=== PATIENT | male | born 1995 | race Caucasian/White ===

== ENCOUNTER 2018-10-30 00:57 | Emergency (ER) | payer OTHER ==
--- NOTE | 2018-10-30 01:04 | ED ---
General Adult HPI - General Stated complaint: Chest pain Time Seen by Provider: 10/30/18 01:04 - History of Present Illness Initial comments: Rigo is a 22-year-old male who presents to the emergency department today for evaluation of palpitations. Patient reports that earlier today he smoked marijuana dab and then began to have palpitations which prompted him to come to the ER. Had no lightheadedness or diaphoresis with this. He had no exertional chest pain. He denies any other drug use. Symptoms resolved shortly after arrival. Patient does report that 3-4 months ago he used cocaine and developed some chest pain he was evaluated an outside hospital was admitted overnight and evaluated by cardiology, he did not have a cardiac catheterization but was cleared by cardiology at that time.. - Related Data Allergies Allergy/AdvReac Type Severity Reaction Status Date / Time No Known Allergies Allergy Verified 10/30/18 01:59 Review of Systems ROS Statement: Those systems with pertinent positive or pertinent negative responses have been documented in the HPI. ROS Other: All systems not noted in ROS Statement are negative. General Exam - General Exam Comments Initial Comments: Physical Exam GENERAL: Patient is well-developed and well-nourished. Patient is nontoxic and well- hydrated and is in no distress. HENT: Normocephalic, Atraumatic. EYES: PERRL, EOMI PULMONARY: Unlabored respirations. No audible rales rhonchi or wheezing was noted. CARDIOVASCULAR: There is a regular rate and rhythm without any murmurs gallops or rubs. ABDOMEN: Soft and nontender with normal bowel sounds. SKIN: Skin is clear with no lesions or rashes and otherwise unremarkable. : Deferred NEUROLOGIC: Patient is alert and oriented x3. Moving all extremities spontaneously MUSCULOSKELETAL: Normal extremities with adequate strength and full range of motion. No lower extremity swelling or edema. No calf tenderness. PSYCHIATRIC: Normal psychiatric evaluation. Course Vital Signs 10/30/18 00:59 Temperature 98.8 F Pulse Rate 120 H Respiratory 20 Rate Blood Pressure 99/79 O2 Sat by Pulse 97 Oximetry EKG Findings - EKG Comments: EKG Findings:: EKG was obtained at 1:02 AM, rate is 122, rhythm is sinus tachycardia there is normal axis there are normal intervals, MA 160, QRS 98, QTC 441 and there is no acute ST elevations or depressions is no evidence of acute ischemia or infarction. Repeat EKG was obtained at 4:31 AM, patient's heart rate and improved, rate is 67 rhythm is sinus there is normal axis are normal intervals, MA 164, QRS 98, QTC [address] elevations or depressions there is no evidence of acute ischemia or infarction. Medical Decision Making - Medical Decision Making Patient was seen and evaluated, patient with no cardiac history presenting with palpitations after smoking marijuana Patient not experiencing chest pain on evaluation, patient did undergo a thorough cardiac evaluation 3-4 months ago when he had chest pain after using cocaine Heart score 0 Patient tachycardic but not hypoxic upon arrival, EKG is sinus tachycardia no signs of ischemia Patient is resting drinking water in no acute distress. Patient was reevaluated he's feeling much better, chest x-ray with no acute findings, repeat EKG is again sinus rhythm with no acute findings heart rate has improved significantly. At this time the patient's comfortable with the plan for discharge home. Disposition Clinical Impression: Atypical chest pain, Palpitations Disposition: HOME SELF-CARE Condition: Stable Instructions (If sedation given, give patient instructions): Chest Pain (ED) Is patient prescribed a controlled substance at d/c from ED?: No Referrals: Michael Ferrari DO [Primary Care Provider] - 1-2 days
[2018-10-30 01:05] VITALS: TEMP 98.8
--- NOTE | 2018-10-30 03:43 | XR ---
EXAM: XR Chest, 2 Views CLINICAL HISTORY: Pain after smoking marijuana TECHNIQUE: Frontal and lateral views of the chest. COMPARISON: 10/30/18 FINDINGS: Lungs: Unremarkable. No consolidation. Pleural space: Unremarkable. No pneumothorax. Heart: Unremarkable. No cardiomegaly. Mediastinum: Unremarkable. Bones/joints: Unremarkable. IMPRESSION: No acute findings or change
[2018-10-30 04:47] VITALS: BP 106/62; PULSE 72; RESP 16
== END 2018-10-30 04:51 | disposition home or self-care (01) ==
LOC: EC 00:57
DX: R07.89 Other chest pain (principal); R00.2 Palpitations; R00.0 Tachycardia, unspecified
CPT/HCPCS: 71046; 93005; 99285